=== PATIENT | female | born 1995 | race African-American/Black ===

== ENCOUNTER 2017-02-20 21:27 | Emergency (ER) ==
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
[2017-02-20] MEDS ORDERED: TORADOL IM ONE (22:46)
[2017-02-20 23:10] VITALS: BP 140/67
--- NOTE | 2017-02-21 08:16 | Diag Imaging Result Document ---
PROCEDURE NAME: WRIST COMPLETE LEFT - 02/20/2017 LEFT WRIST, THREE VIEWS: FINDINGS: No fracture. No dislocation. IMPRESSION: No acute bony injury.
== END 2017-02-20 23:10 | disposition home or self-care (01) ==
LOC: ED 21:27
DX: S90.512A Abrasion, left ankle, initial encounter (principal); S80.812A Abrasion, left lower leg, initial encounter; M25.532 Pain in left wrist; M79.1 Myalgia; Y08.89XA Assault by other specified means, initial encounter; F17.210 Nicotine dependence, cigarettes, uncomplicated; Z71.6 Tobacco abuse counseling
CPT/HCPCS: J1885